=== PATIENT | female | born 1970 ===

== ENCOUNTER 2016-06-12 17:50 | Emergency (ER) | payer MEDICAID ==
[~2016-06-12 17:50] MED LIST: AMOXICILLIN 1000 MG PO; ATIVAN0.5 MG PO; HUMALOG SQ; LANTUS PO; NORCO 7.5-3251 EACH PO; PROTONIX40 MG PO; TYLENOL PO; ULTRAM ER100 MG PO; VIT E PO; ZOFRAN4 MG PO
--- NOTE | 2016-06-14 19:07 | ER ---
ADMIT: 06/12/2016 RM/LOC: ER [facility] MR#: [id number] [id number] [place], [place] [address] KAILASH LIN[address]N [address] [address] Emergency Room Report SEX: F AGE: 46 : 1970 DATE: 06/12/2016 HISTORY OF PRESENT ILLNESS: The patient is a 46-year-old female with a past medical history of resolved diabetes, status post gastric bypass, who came to the ER with chief complaint of left anterior lower chest pain, which radiates to the neck. The patient states she has similar episodes in the past, which resolved spontaneously. The pain is nonpleuritic and does not change with exertion. The pain has started during the rest in the morning, infection and waning and is intermittent. Pain is moderate in severity and is pressure like. The patient has stable vitals in the ER, received aspirin p.o. EKG did not show any ST or T changes, normal sinus rhythm, there were no Q-waves or arrhythmias. Cardiac enzymes are negative. D-dimer is negative. Pain was controlled. The patient received GI cocktail, IV fluids, and morphine. The patient at the beginning received 1 dose of sublingual nitroglycerin, which did not change the pain and mildly dropped the blood pressure. PHYSICAL EXAMINATION: GENERAL: The patient was in mild distress, alert and oriented to person, place, and time. HEAD AND NECK: Noncontributory. CHEST: Clear. Bilateral equal breath sounds. HEART: Normal S1 and S2 without any murmurs or extra sounds. ABDOMEN: Soft. There is no tenderness or rebound or guarding. The rest of the physical exam is noncontributory. The patient has no lower extremity tenderness or swelling. She had normal peripheral pulses. Pain was controlled, lab work was negative. D-dimer and troponin I was negative and normal. The rest of the lab work was also negative except for urine was positive for 18 WBC. Pain was controlled, the patient's rechecked abdominal exam and chest exam was benign. The patient was discharged to home. Return precautions, follow up with the primary doctor, prescription for Keflex p.o. and diagnosis of chest pain/UTI. Alonzo Stout MD/ andrew JOB #: [id number] CC: Albert Lewis MD, Attending Physician UNKNOWN, Family Physician
== END 2016-06-12 20:40 | disposition home or self-care (01) ==
LOC: ER 17:50
DX: R07.9 Chest pain, unspecified (principal); N39.0 Urinary tract infection, site not specified; E11.9 Type 2 diabetes mellitus without complications; Z79.4 Long term (current) use of insulin

== ENCOUNTER 2016-07-01 19:49 | Emergency (ER) | payer MEDICAID ==
--- NOTE | 2016-07-13 14:39 | ER ---
ADMIT: 07/01/2016 RM/LOC: ER [facility] MR#: [id number] [address] [address] KAILASH LINCOLN [address] [address] Emergency Room Report SEX: F AGE: 46 : 1970 DATE: 07/01/2016 ADDENDUM: CHIEF COMPLAINT: Cough. HISTORY OF PRESENT ILLNESS: This is a 46-year-old female, who saw her primary care physician 3 days ago, was placed on Zithromax, she has taken 3 days of it. She said she is just feeling just as bad if not worse. She has aches all over, low-grade fever. I told her at this time, her lungs are clear, her saturations are perfect at 97% to 100% on room air, she is not tachycardic. I told her to continue the Z-Lionel. I am prescribing her Phenergan with Codeine because she says she cannot sleep at night because she is coughing so much. She will follow up with her primary care physician if she worsens. CLINICAL IMPRESSION: Bronchitis. SHAD Roman / Calos May MD / andrew JOB #: [id number] CC: Calos May MD, Attending Physician Chely Holden DO Resident, Family Physician
== END 2016-07-01 20:43 | disposition home or self-care (01) ==
LOC: ER 19:49
DX: J40 Bronchitis, not specified as acute or chronic (principal); G89.29 Other chronic pain; M54.9 Dorsalgia, unspecified; Z90.49 Acquired absence of other specified parts of digestive tract; Z79.899 Other long term (current) drug therapy

== ENCOUNTER 2016-07-03 01:46 | Emergency (ER) | payer MEDICAID ==
--- NOTE | 2016-07-03 06:25 | ER ---
ADMIT: 07/03/2016 RM/LOC: ER [facility] MR#: [id number] [address] [facility] [id number] [place], [place] [address] KAILASH LIN[address]N [address] [address] Emergency Room Report SEX: F AGE: 46 : 1970 DATE: 07/03/2016 The patient is a 46-year-old female, currently on day 3 of Tessalon Perles, guaifenesin with codeine and Zithromax. States her throat is still quite sore. Exam remarkable for nontoxic, afebrile female. Tender anterior cervical lymphadenopathy. No obstructive tonsillitis. Given 1 g of Rocephin IM, Toradol 30, Dilaudid 1 mg, Reglan 5 mg IM. Continue current medications, salt water gargles. Tylenol and Motrin as needed. Follow up Dr. Holden. Trey Hart MD/ andrew JOB #: [id number] CC: Trey Hart MD, Attending Physician Chely Holden DO Resident, Family Physician Chely Holden DO Resident
== END 2016-07-03 03:05 | disposition home or self-care (01) ==
LOC: ER 01:46
DX: J02.9 Acute pharyngitis, unspecified (principal); Z79.899 Other long term (current) drug therapy; Z90.49 Acquired absence of other specified parts of digestive tract

== ENCOUNTER 2016-11-02 18:42 | Emergency (ER) | payer MEDICAID ==
--- NOTE | 2016-11-03 09:55 | ER ---
ADMIT: 11/02/2016 RM/LOC: ER [facility] MR#: [id number] [id number] [place], [place] [address] KAILASH LINCOLN [address] [place] [address] Emergency Room Report SEX: F AGE: 46 : 1970 DATE: 11/02/2016 CHIEF COMPLAINT: "Pain all over." HISTORY OF PRESENT ILLNESS: A 46-year-old female, who presents to the ER with complaints of an hour's duration of acute-onset pain. States she has some vague anterior chest pain that radiates down her left arm into her left leg and all about her body. She admits to fevers, chills, muscle aches, cough, mild shortness of breath. States she has had an increasing cough over the day. She has some nasal congestion. Admits to weakness and nausea. Denies palpitations, ankle swelling, abdominal pain, problems urinating. PAST MEDICAL HISTORY: For diabetes. PAST SURGICAL HISTORY: Cholecystectomy, gastric bypass, kidney stone, T and A. MEDICATIONS: 1. Ativan. 2. Metformin. SOCIAL HISTORY: Denies smoking, drugs, or alcohol. FAMILY HISTORY: Cardiac disease in grandmother, less than 60. COURSE IN THE EMERGENCY ROOM: The patient was seen and examined. VITAL SIGNS: Febrile. Temp 102.8, blood pressure 105/70, heart rate 104, respirations 22. Given her presentation, she was started on the SIRS protocol. GENERAL: She is in moderate amount of distress. She is quite anxious. HEENT: Normocephalic and atraumatic. Pupils are equal and reactive. She has some faint nasal mucosa edema. Pharynx is nonerythematous. NECK: Soft, supple. No lymphadenopathy. CHEST: Clear. No wheezes, rhonchi, or rales. ABDOMEN: Soft and nontender. HEART: Regular. Mildly tachycardic. SKIN: Warm and dry. EXTREMITIES: Nontender. No pedal edema. NEUROLOGIC: She is alert and oriented. Motor and sensation intact in the extremities. LABORATORY STUDIES: White count 4.7, platelets 80, lactic acid 1.5. Chemistries unremarkable other than elevated AST of 68. Urine preg was negative. Flu screen is negative. UA unremarkable. Blood cultures x1 pending. While in department, she received a gram of Tylenol, 4 of Zofran, 15 ADMIT: 11/02/2016 RM/LOC: ER [facility] MR#: [id number] [address] [address] [place] [address] Emergency Room Report SEX: F AGE: 46 : 1970 mg of Toradol, and 25 mg of Benadryl. CLINICAL IMPRESSION: 1. Chest pain. 2. Viral syndrome. 3. Thrombocytopenia. DISPOSITION: Discharged home. To increase fluids. Tylenol or Motrin for fever. She is to monitor for worsening signs or symptoms. Follow up as needed or see her primary care provider next week. Discharged home in stable condition. SHAD Cardona / Calos May MD / andrew JOB #: [id number] CC: Joey Fuller MD, Attending Physician Judit Macdonald MD, Family Physician
--- NOTE | 2016-11-03 14:41 | NUR ---
Pt triggered as high ED user. Attempted to contact pt. No answer, voice mail message left.
== END 2016-11-02 21:00 | disposition home or self-care (01) ==
LOC: ER 18:42
DX: R07.9 Chest pain, unspecified (principal); B34.9 Viral infection, unspecified; D69.6 Thrombocytopenia, unspecified; E11.9 Type 2 diabetes mellitus without complications; Z90.49 Acquired absence of other specified parts of digestive tract; Z98.890 Other specified postprocedural states; Z90.89 Acquired absence of other organs; Z98.84 Bariatric surgery status; Z79.84 Long term (current) use of oral hypoglycemic drugs; Z79.899 Other long term (current) drug therapy